=== PATIENT | male | born 1975 | race Caucasian/White ===

== ENCOUNTER 2017-08-14 12:07 | Emergency (ER) | payer OTHER ==
[2017-08-14 12:10] VITALS: BP 157/84; PULSE 97; TEMP 98.2
[2017-08-14] MEDS ORDERED: IBUPROFEN 600 MG TABLET (FP) PO ONE ×2 (12:40→12:43)
--- NOTE | 2017-08-14 12:47 | PDOC ---
History of Present Illness - General Chief Complaint: Ear Problem Stated Complaint: LT EAR INFECTION Time Seen by Provider: 08/14/17 12:17 History Source: Patient Exam Limitations: No Limitations - History of Present Illness Initial Comments: 08/14/17 12:40 42 year old male with left ear pain x 4 days with no change in hearing. States pain is exacerbated by opening and closing of mouth. Timing/Duration: other (4 days) Modifying Factors: improves with: immobilization, medication Associated Symptoms: reports: denies symptoms Aspirin Received prior to arrival: Yes: no aspirin today Asa Contraindications(Core Measure): No: Allergy Beta Yuridia Contraindications(Core Measure): Yes: Not Prescribed Beta Yuridia Given by EMS(Core Measure): No Beta Yuridia Taken at Home(Core Measure): No Past History - Travel Traveled outside of the country in the last 30 days: Yes Close contact w/someone who was outside of country & ill: No - Past Medical History Allergies/Adverse Reactions: Allergies Allergy/AdvReac Type Severity Reaction Status Date / Time No Known Allergies Allergy Verified 08/14/17 12:10 Home Medications: Ambulatory Orders Amoxicillin - [Amoxicillin 500mg Capsule -] 500 mg PO BID #20 capsule 08/14/17 Asthma: No Cardiac Disorders: No COPD: No Diabetes: No GI Disorders: No Disorders: No HTN: No Seizures: No - Surgical History Abdominal Surgery: No Appendectomy: No Cardiac Surgery: No Cholecystectomy: No Lung Surgery: No Neurologic Surgery: No Orthopedic Surgery: No - Reproductive History Testicular Surgery: No - Suicide/Smoking/Psychosocial Hx Smoking Status: Yes Smoking History: Current every day smoker Have you smoked in the past 12 months: Yes Number of Cigarettes Smoked Daily: 10 Information on smoking cessation initiated: Yes 'Breaking Loose' booklet given: 08/14/17 Hx Alcohol Use: No Drug/Substance Use Hx: No Substance Use Type: None Hx Substance Use Treatment: Yes Review of Systems - Review of Systems Able to Perform ROS?: Yes Is the patient limited Divehi proficient: No Constitutional: No: Chills, Night Sweats, Weakness HEENTM: Yes: Ear Pain. No: Eye Pain, Blurred Vision, Cataracts, Ear Discharge, Nose Pain, Nose Congestion, Throat Swelling Respiratory: No: Cough, Orthopnea, SOB at Rest, Wheezing ABD/GI: No: Abdominal Distended, Blood Streaked Bowels, Nausea, Poor Appetite, Indigestion : No: Burning, Incontinence Musculoskeletal: No: Back Pain, Gout, Joint Pain, Neck Pain *Physical Exam - Vital Signs Last Vital Signs Temp Pulse Resp BP Pulse Ox 98.2 F 97 H 20 157/84 98 08/14/17 12:08 08/14/17 12:08 08/14/17 12:08 08/14/17 12:08 08/14/17 12:08 - Physical Exam General Appearance: Yes: Nourished, Appropriately Dressed. No: Apparent Distress, Severe Distress HEENT: positive: EOMI, MAHESH, TM Dull (left tm dull, no cone of light, tm appears ruptured.), Other (no mastoid bone tenderness). negative: Hearing Decreased Respiratory/Chest: positive: Lungs Clear, Normal Breath Sounds Cardiovascular: positive: Regular Rate, S1, S2 Neurologic: positive: Fully Oriented, Alert, Normal Mood/Affect Medical Decision Making - Medical Decision Making 08/14/17 12:44 42 year old male with left otitis media x 4 days ibuprofen given in fasttrack Rx: amoxicillin x 10 days instructed to follow up with pmd *DC/Admit/Observation/Transfer Diagnosis at time of Disposition: Otitis media Qualifiers: Otitis media type: unspecified Chronicity: acute Qualified Code(s): H66.90 - Otitis media, unspecified, unspecified ear - Discharge Dispostion Disposition: HOME Condition at time of disposition: Good Admit: No - Prescriptions Prescriptions: Amoxicillin - [Amoxicillin 500mg Capsule -] 500 mg PO BID #20 capsule - Referrals - Patient Instructions Printed Discharge Instructions: Middle Ear Infection Additional Instructions: *Please take medication as prescribed *no q-tip in ear *Follow up with your doctor in 7 days - Post Discharge Activity Forms/Work/School Notes: Back to Work
== END 2017-08-14 13:31 | disposition home or self-care (01) ==
LOC: JERFT 12:07
DX: H66.90 Otitis media, unspecified, unspecified ear (principal); F17.210 Nicotine dependence, cigarettes, uncomplicated
CPT/HCPCS: 99281-25

== ENCOUNTER 2017-09-22 18:31 | Emergency (ER) | payer OTHER ==
[2017-09-22 19:20] VITALS: BP 146/99; PULSE 92; TEMP 98.2; BMI 29.7
[2017-09-22] MEDS ORDERED: DIPHTH,PERTUSS(ACELL),TET 0.5 ML DISP.SYRIN IM ONE (19:46)
[2017-09-22] MEDS ORDERED: traMADol HCL 50 MG TABLET PO ONE (19:46)
--- NOTE | 2017-09-22 19:46 | PDOC ---
History of Present Illness - General Chief Complaint: Wound Stated Complaint: CYST Time Seen by Provider: 09/22/17 19:20 History Source: Patient - History of Present Illness Timing/Duration: reports: other Location: reports: genitalia Past History - Past Medical History Allergies/Adverse Reactions: Allergies Allergy/AdvReac Type Severity Reaction Status Date / Time No Known Allergies Allergy Verified 09/22/17 19:20 Home Medications: Ambulatory Orders Clindamycin [Cleocin -] 300 mg PO Q6HPO #28 capsule 09/22/17 Ibuprofen [Motrin -] 600 mg PO QID #28 tablet 09/22/17 Asthma: No Cardiac Disorders: No COPD: No Diabetes: No GI Disorders: No Disorders: No HTN: No Seizures: No - Surgical History Abdominal Surgery: No Appendectomy: No Cardiac Surgery: No Cholecystectomy: No Lung Surgery: No Neurologic Surgery: No Orthopedic Surgery: No - Reproductive History Testicular Surgery: No - Suicide/Smoking/Psychosocial Hx Smoking Status: Yes Smoking History: Current every day smoker Have you smoked in the past 12 months: Yes Number of Cigarettes Smoked Daily: 12 Information on smoking cessation initiated: No 'Breaking Loose' booklet given: 08/14/17 Hx Alcohol Use: No Drug/Substance Use Hx: No Substance Use Type: None Hx Substance Use Treatment: Yes Review of Systems - Review of Systems Constitutional: No: Chills, Fever, Malaise Integumentary: Yes: Other (abscess) *Physical Exam - Vital Signs Last Vital Signs Temp Pulse Resp BP Pulse Ox 98.2 F 92 H 18 146/99 99 09/22/17 19:10 09/22/17 19:10 09/22/17 19:10 09/22/17 19:10 09/22/17 19:10 - Physical Exam General Appearance: Yes: Appropriately Dressed. No: Apparent Distress HEENT: positive: Normal Voice Integumentary: positive: Other (6x6 cm area of fluctuance w/ extensive surrounding erythema, no crepitus) Procedures - Incision and Drainage I&D Site: Left: Buttock Anesthesia: 1% Lidocaine Volume(ml): 8 Blade Size: 11 Attempts: 1 (w/ copious purulent discharge) Plain Packing: Yes Complications: none Dressing: Yes (bacitracin, xeroform and 4x4) Medical Decision Making - Medical Decision Making 09/22/17 19:44 42-year-old male, no significant history here with abscess to left gluteus. Patient states abscess developed a month ago and drain spontaneously at home. Was started on abx (does not remember name) by his PMD only took meds for 4 days as he lost rest of medications secondary to moving to a different apartment. States abscess has since re-accumulated and getting worse. Has now noticed surrounding redness. No fever or chills. No trauma or bites. Patient well-appearing and stable with large fluctuant area of induration to lateral left gluteus with significant surrounding erythema. Will drain and start patient on antibiotics 09/22/17 20:01 Pt status post I&D with copious amount of purulent discharge. Wound irrigated and packing placed. Pen velma drawn around area of cellulitis and patient instructed to return to ER immediately if erythema extends beyond velma. Tetanus updated. Will discharge with antibiotics and have patient return for wound check in 2 days *DC/Admit/Observation/Transfer Diagnosis at time of Disposition: Gluteal abscess - Discharge Dispostion Disposition: HOME Condition at time of disposition: Improved - Prescriptions Prescriptions: Clindamycin [Cleocin -] 300 mg PO Q6HPO #28 capsule Ibuprofen [Motrin -] 600 mg PO QID #28 tablet - Referrals Referrals: Tere Lopez [Primary Care Provider] - - Patient Instructions Printed Discharge Instructions: DI for Incision and Drainage of a Skin Abscess Additional Instructions: Keep wound clean and dry Take medications as prescribed and return to ER immediately for worsening of symptoms as discussed in ED. Return to ER in 2 days for wound check - Post Discharge Activity
[2017-09-22] MEDS ORDERED: traMADol HCL 50 MG TABLET ONE (19:52)
== END 2017-09-22 20:08 | disposition home or self-care (01) ==
LOC: JERFT 18:31
PROC: 0J990ZZ Drainage of Buttock Subcutaneous Tissue and Fascia, Open Approach (ICD-10-PCS; principal; 2017-09-22)
PROC: 3E0234Z Introduction of Serum, Toxoid and Vaccine into Muscle, Percutaneous Approach (ICD-10-PCS; 2017-09-22)
DX: L02.31 Cutaneous abscess of buttock (principal)
CPT/HCPCS: 87070; 87186; 87205; 90715; 99281-25

== ENCOUNTER 2018-05-06 18:43 | Emergency (ER) | payer OTHER ==
[2018-05-06 19:09] VITALS: BP 122/75; PULSE 91; TEMP 98.3; BMI 29.7
[2018-05-06] MEDS ORDERED: SODIUM CHLORIDE 1,000 ML IV STA (19:22)
[2018-05-06] MEDS ORDERED: ONDANSETRON 4 MG/2 ML VIAL IVPUSH ONE (19:22)
--- NOTE | 2018-05-06 19:25 | PDOC ---
Attending Attestation - HPI HPI: 05/06/18 19:29 The patient is a 43 year old male, with a significant past medical history of opioid abuse on suboxone, who presents to the emergency department with 5 days of epigastric pain, nausea, and retching. He reports experiencing these symptoms the first week of April, felt well for about a week, and the his symptoms returned as of 5 days ago. The patient denies chest pain, shortness of breath, headache and dizziness. The patient denies fever, chills, vomit, diarrhea and constipation. The patient denies dysuria, frequency, urgency and hematuria. Allergies: NKDA - Physicial Exam PE: 05/06/18 19:29 GENERAL: The patient is in no acute distress. HEAD: Normal with no signs of trauma. EYES: PERRLA, EOMI, sclera anicteric, conjunctiva clear. ENT: Ears normal, nares patent, oropharynx clear without exudates. Moist mucous membranes. NECK: Normal range of motion, supple without lymphadenopathy, JVD, or masses. LUNGS: Breath sounds equal, clear to auscultation bilaterally. No wheezes, and no crackles. HEART:Regular rate and rhythm, normal S1 and S2 without murmur, rub or gallop. ABDOMEN: Soft, nontender, normoactive bowel sounds. No guarding, no rebound. No masses palpable. EXTREMITIES: Normal range of motion, no edema. No clubbing or cyanosis. No erythema, or tenderness. NEUROLOGICAL: Cranial nerves II through XII grossly intact. Normal speech. No focal neurological deficits. MUSCULOSKELETAL: Back non-tender to palpation, no CVA tenderness SKIN: Warm, Dry, normal turgor, no rashes or lesions noted. - Medical Decision Making 05/06/18 19:29 Documentation prepared by Selena Robledo, acting as medical lab scientist for Tracey Sanz MD. <Selena Robledo - Last Filed: 05/06/18 20:28> - Resident Resident Name: Zac Magaña - ED Attending Attestation I have performed the following: I have examined & evaluated the patient, The case was reviewed & discussed with the resident, I agree w/resident's findings & plan, Exceptions are as noted - Medical Decision Making 43 yo M presents to the ER with a complaint of abdominal pain pain, nausea, vomiting and inability to tolerate po Pt states that in the beginning of April, he began having epigastric discomfort , nausea Symptoms lasted 5 days and self resolved Approximately 5 days alter, his symptoms began again He has had these symptoms for the past 5 days In fact today, he was only able to eat a peach, because he had no appetite No fevers or chills (+) bm (+) flatus No recent travel No undercooked meat/shell fish he has not followed up with GI in the past Pt has no abdominal tenderness on examination No guarding, No rebound RRR CTA bilaterally 05/06/18 21:54 Laboratory Tests 05/06/18 05/06/18 05/06/18 20:30 20:30 21:30 WBC 9.1 Hgb 15.2 Hct 43.9 Plt Count 363 D BUN 15 Creatinine 0.8 Random Glucose 96 Lipase 132 Urine Nitrite Negative Ur Leukocyte Esterase Negative Urine WBC (Auto) <1 Urine RBC (Auto) <1 upon re assessment, pt states he feels better will discharge to home Follow up with PMD <Tracey Sanz - Last Filed: 05/06/18 22:23>
[2018-05-06] MEDS ORDERED: FAMOTIDINE 20 MG/50 ML IVPB 20 MG/50 ML MG IVPB ONE ×2 (19:30→20:30)
--- NOTE | 2018-05-06 20:12 | PDOC ---
History of Present Illness - General Chief Complaint: Pain, Acute Stated Complaint: ABDOMINAL PAIN, FEVER Time Seen by Provider: 05/06/18 19:14 History Source: Patient Exam Limitations: No Limitations - History of Present Illness Initial Comments: 05/06/18 19:26 Patient is a medical history of opioid abuse (on suboxone) here today complaining of 5 days of periumbilical abdominal pain. Patient endorses subjective fevers, chills, nausea, vomiting, diarrhea. Denies surgical history. Denies dysuria. Last bowel movement today. Patient states that he was taking his suboxone normally before the symptoms started, but has missed some suboxone doses. Past History - Past Medical History Allergies/Adverse Reactions: Allergies Allergy/AdvReac Type Severity Reaction Status Date / Time No Known Allergies Allergy Verified 05/06/18 19:04 Home Medications: Ambulatory Orders Clindamycin [Cleocin -] 300 mg PO Q6HPO #28 capsule 09/22/17 Ibuprofen [Motrin -] 600 mg PO QID #28 tablet 09/22/17 Asthma: No Cardiac Disorders: No COPD: No Diabetes: No GI Disorders: No Disorders: No HTN: No Seizures: No Other medical history: denies. - Surgical History Abdominal Surgery: No Appendectomy: No Cardiac Surgery: No Cholecystectomy: No Lung Surgery: No Neurologic Surgery: No Orthopedic Surgery: No - Reproductive History Testicular Surgery: No - Suicide/Smoking/Psychosocial Hx Smoking Status: Yes Smoking History: Current every day smoker Have you smoked in the past 12 months: Yes Number of Cigarettes Smoked Daily: 20 Information on smoking cessation initiated: No 'Breaking Loose' booklet given: 08/14/17 Hx Alcohol Use: No Drug/Substance Use Hx: No Substance Use Type: None Hx Substance Use Treatment: Yes Review of Systems - Review of Systems Comments:: 05/06/18 20:12 GENERAL/CONSTITUTIONAL: No fever or chills. No weakness. HEAD, EYES, EARS, NOSE AND THROAT: No change in vision. No sore throat. CARDIOVASCULAR: No chest pain or shortness of breath RESPIRATORY: No cough, wheezing, or hemoptysis. GASTROINTESTINAL: +nausea, vomiting, diarrhea. GENITOURINARY: No dysuria, frequency, or change in urination. MUSCULOSKELETAL: No joint or muscle swelling or pain. No neck or back pain. SKIN: No rash NEUROLOGIC: No headache, vertigo, loss of consciousness, or change in strength/ sensation. ENDOCRINE: No increased thirst. No abnormal weight change HEMATOLOGIC/LYMPHATIC: No anemia, easy bleeding, or history of blood clots. ALLERGIC/IMMUNOLOGIC: No hives or skin allergy. *Physical Exam - Vital Signs Last Vital Signs Temp Pulse Resp BP Pulse Ox 98.3 F 91 H 19 122/75 98 05/06/18 19:04 05/06/18 19:04 05/06/18 19:04 05/06/18 19:04 05/06/18 19:04 - Physical Exam Comments: 05/06/18 20:13 GENERAL: Awake, alert, and fully oriented, in no acute distress, walking around room without issue HEAD: No signs of trauma, normocephalic, atraumatic EYES: PERRLA, EOMI, sclera anicteric, conjunctiva clear ENT: Auricles normal inspection, hearing grossly normal, nares patent, oropharynx clear without exudates. Moist mucosa NECK: Normal ROM, supple, no lymphadenopathy, JVD, or masses LUNGS: No distress, speaks full sentences, clear to auscultation bilaterally HEART: Regular rate and rhythm, normal S1 and S2, no murmurs, rubs or gallops, peripheral pulses normal and equal bilaterally. ABDOMEN: Soft, nontender, normoactive bowel sounds. No guarding, no rebound. No masses EXTREMITIES: Normal inspection, Normal range of motion, no edema. No clubbing or cyanosis. NEUROLOGICAL: Cranial nerves II through XII grossly intact. Normal speech, normal gait, no focal sensorimotor deficits SKIN: Warm, Dry, normal turgor, no rashes or lesions noted. ED Treatment Course - LABORATORY CBC & Chemistry Diagram: 05/06/18 20:30 05/06/18 20:30 Medical Decision Making - Medical Decision Making 05/06/18 20:13 Patient is 43M with history of opioid abuse here today on with abdominal pain, nausea, vomiting. Vital signs normal and stable. PE shows no tenderness on exam. Believe patient most likely has gastroenteritis, but will evaluate with basic labs for metabolic derangement secondary to vomiting/diarrhea. Patient appears well. Believe patient does not likely have cholecystitis, appendicitis, diverticulitis do to well appearing and normal PE, walking without pain, and no focalization of pain. Will treat with fluids, zofran, pepcid. 05/06/18 21:44 CBC, CMP, UA normal. Patient reassessed, states he has no pain, standing up and walking asking to go home. Discharged with return precautions and PCP follow up. *DC/Admit/Observation/Transfer Diagnosis at time of Disposition: Abdominal pain - Discharge Dispostion Disposition: HOME Condition at time of disposition: Good Decision to Admit order: No - Referrals - Patient Instructions Printed Discharge Instructions: DI for Abdominal Pain-Adult Additional Instructions: Please return if you have any new, wrosening or concerning symptoms. Please follow up with your primary care physician this week. - Post Discharge Activity
[2018-05-06] MEDS ORDERED: ONDANSETRON 4 MG/2 ML VIAL ONE (20:30)
[2018-05-06 20:40] LABS: BASO % 0.9 % (0-2.0); EOS % 1.1 % (0-4.5); HEMATOCRIT 43.9 % (35.4-49); HEMOGLOBIN 15.2 GM/dL (11.7-16.9); LYMPH % 24.5 % (8-40); MCH 29.6 pg (25.7-33.7); MCHC 34.6 g/dl (32.0-35.9); MEAN CELL VOLUME 85.6 fl (80-96); MEAN PLT VOLUME 9.3 fl (7.5-11.1); MONO % 7.7 % (3.8-10.2); NEUT % 65.8 % (42.8-82.8); PLATELET COUNT 363 K/MM3 (134-434); RBC 5.13 M/mm3 (4.00-5.60); RDW 14.1 % (11.9-15.9); WHITE BLOOD COUNT 9.1 K/mm3 (4.0-10.0)
[2018-05-06 21:22] LABS: ALBUMIN 4.4 g/dl (3.4-5.0); ALK PHOS 81 U/L (45-117); ANION GAP 7 MMOL/L (8-16); BILIRUBIN,TOTAL 0.2 mg/dL (0.2-1.0); BLOOD UREA NITROGEN 15 mg/dL (7-18); CALCIUM 9.6 mg/dL (8.5-10.1); CHLORIDE 101 mmol/L (98-107); CO2 28 mmol/L (21-32); CREATININE 0.8 mg/dL (0.7-1.3); GLUCOSE,RANDOM 96 mg/dL (74-106); LIPASE 132 U/L (73-393); POTASSIUM 4.4 mmol/L (3.5-5.1); SGOT/AST 23 U/L (15-37); SGPT/ALT 42 U/L (12-78); SODIUM 136 mmol/L (136-145); TOT PROT 8.7 g/dl (6.4-8.2)
[2018-05-06 21:40] LABS: URINE APPEARANCE CLEAR; URINE BILIRUBIN NEGATIVE (<2.0 mg/dL); URINE COLOR YELLOW; URINE GLUCOSE (UA) NEGATIVE (NEGATIVE); URINE KETONE NEGATIVE (NEGATIVE); URINE LEUK ESTERASE NEGATIVE (NEGATIVE); URINE NITRITE NEGATIVE (NEGATIVE); URINE PROTEIN NEGATIVE (NEGATIVE); URINE UROBILINOGEN NEGATIVE mg/dL (0.2-1.0)
[2018-05-06 21:41] LABS: URINE MUCUS RARE
== END 2018-05-06 22:19 | disposition home or self-care (01) ==
LOC: JER 18:43
PROC: 3E033GC Introduction of Other Therapeutic Substance into Peripheral Vein, Percutaneous Approach (ICD-10-PCS; principal; 2018-05-06)
PROC: 3E0337Z Introduction of Electrolytic and Water Balance Substance into Peripheral Vein, Percutaneous Approach (ICD-10-PCS; 2018-05-06)
DX: R10.84 Generalized abdominal pain (principal)
CPT/HCPCS: 36415; 80053; 81003; 81015; 83690; 85025; 96361; 96365; 96375; 99281-25; J7030

== ENCOUNTER 2020-03-04 23:26 | Emergency (ER) | payer OTHER ==
[2020-03-04 23:34] VITALS: BP 129/65; PULSE 90; TEMP 98.4; BMI 31.3
[2020-03-05] MEDS ORDERED: ACETAMINOPHEN 325 MG TABLET (FP) ONE (00:20)
[2020-03-05] MEDS ORDERED: ACETAMINOPHEN 325 MG TABLET (FP) PO ONE (00:23)
[2020-03-05] MEDS ORDERED: DIPHTH,PERTUSS(ACELL),TET 0.5 ML DISP.SYRIN IM ONE ×2 (00:23)
== END 2020-03-05 00:50 | disposition home or self-care (01) ==
LOC: JER 23:26
PROC: 3E0234Z Introduction of Serum, Toxoid and Vaccine into Muscle, Percutaneous Approach (ICD-10-PCS; principal; 2020-03-04)
DX: L55.9 Sunburn, unspecified (principal)
CPT/HCPCS: 90715; 99283-25